=== PATIENT | female | born 1985 | race Asian ===

== ENCOUNTER → 2019-10-10 15:24 | Outpatient (CLI) | payer OTHER, SELFPAY | PROVIDERS: Family Provider Obstetrics & Gynecology; PCP Obstetrics & Gynecology; Visit Provider Obstetrics & Gynecology | DX: N89.8 Other specified noninflammatory disorders of vagina (principal) | CPT/HCPCS: 87255 ==

== ENCOUNTER → 2022-01-20 15:04 | Outpatient (CLI) | payer BC, SELFPAY ==
[2022-01-20 16:28] LABS: Appearance Urine UA CLEAR; Bilirubin Urine UA NEGATIVE (NEGATIVE); Color Urine UA YELLOW; Glucose Urine UA NEGATIVE (Negative); Ketones Urine UA NEGATIVE (NEGATIVE); Leukocyte Esterase Urine UA TRACE (NEGATIVE); Nitrite Urine UA NEGATIVE (Negative); Occult Blood Urine UA 1+ (Negative); Protein Urine UA NEGATIVE (Negative); Specific Gravity Urine UA <=1.005 (1.000-1.035); Urobilinogen Urine UA 0.2 E.U./dL (0.2)
[2022-01-20 16:53] LABS: Bacteria Urine None Seen; Culture Indicated Urine Cult Not Indicated; RBC Urine 0-1/HPF (0-5/HPF); Squamous Epithelial Cell Urine 10-30 /HPF (0-5/HPF); WBC Urine 0-1/HPF (0-5/HPF)
== END ==
PROVIDERS: Family Provider Obstetrics & Gynecology; PCP Obstetrics & Gynecology; Referring Provider Obstetrics & Gynecology; Visit Provider Obstetrics & Gynecology
DX: R35.0 Frequency of micturition (principal)
CPT/HCPCS: 81001

== ENCOUNTER → 2023-09-26 13:16 | Outpatient (CLI) | payer OTHER, BC, SELFPAY ==
--- NOTE | 2023-09-26 | DI.US.S_ITS ---
ULTRASOUND OF LEFT BREAST: 09/26/2023 CLINICAL: Palpable left breast lump. Comparison is made to exam dated: 09/26/2023 mammogram - [facility]. Color flow ultrasound of the left breast was performed. Juarez scale images of the real-time examination were reviewed. There is a 3.2 cm x 3.1 cm x 2.2 cm oval mass with a microlobulated margin in the left breast at 1 o'clock middle depth 2 cm from the nipple. This oval mass is isoechoic. This correlates as palpated and with mammography findings. Color flow imaging demonstrates that there is vascularity present. IMPRESSION: SUSPICIOUS OF MALIGNANCY The 3.2 cm x 3.1 cm x 2.2 cm oval mass in the left breast corresponds to the palpable abnormality, most likely is a fibroadenoma and is at a low suspicion for malignancy. An ultrasound guided biopsy is recommended. Findings and recommendations were discussed with the patient in person by Dr. Beto Richards at time of exam. This exam was interpreted at Station ID: [id number]. Electronically Signed By: Chastity hinojosa/:09/26/2023 15:17:46 letter sent: Biopsy Required Ultrasound BI-RADS: 4a Low suspicion for malignancy
--- NOTE | 2023-09-26 | DI.MG.S_ITS ---
BILATERAL DIGITAL DIAGNOSTIC MAMMOGRAM 3D/2D: 09/26/2023 CLINICAL: Baseline exam. Left breast Mass. Family history Breast Cancer. No prior exams were available for comparison. There are scattered areas of fibroglandular density in the right breast (category b / 25%-50% glandular tissue). The left breast is heterogeneously dense, which may obscure small masses (category c / 51-75% glandular tissue). There is a 3.5 cm oval high density mass with a circumscribed margin in the left breast at 12 o'clock middle depth. This is seen in additional views. This correlates as palpated. No other significant masses, calcifications, or other findings are seen in either breast. RIght mammogram is normal. IMPRESSION: INCOMPLETE: NEEDS ADDITIONAL IMAGING EVALUATION The 3.5 cm oval high density mass in the left breast is indeterminate. An ultrasound is recommended. This was performed immediately following this exam. Right breast mammogram is normal. Based on Tyrer-Cuzick model (a risk assessment model), the patient's lifetime risk is 20.7% and her 10 year risk is 2.2%. If a patient has an elevated risk, a more comprehensive evaluation should be considered and/or a referral to a genetic counselor. The [employer], [employer], and NCCN Guidelines advise the consideration of Breast MRI as an adjunct to screening mammography in patients whose Lifetime risk to develop breast cancer is 20% or higher. This exam was interpreted at Station ID: [id number]. NOTE: For mammograms, a report in lay terms will be sent to the patient. Approximately 15% of breast malignancies will not be visualized mammographically. In the management of a palpable breast mass, a negative mammogram must not discourage biopsy of a clinically suspicious lesion. Electronically Signed By: Chastity hinojosa/:09/26/2023 14:05:12 ACR BI-RADS Category 0: Incomplete [id number]
== END ==
PROVIDERS: Family Provider Obstetrics & Gynecology; PCP Obstetrics & Gynecology; Referring Provider Registered Nurse; Visit Provider Registered Nurse
DX: R92.8 Other abnormal and inconclusive findings on diagnostic imaging of breast (principal); N63.21 Unspecified lump in the left breast, upper outer quadrant; R92.332 Mammographic heterogeneous density, left breast
CPT/HCPCS: 76642; 77066; G0279

== ENCOUNTER → 2023-10-17 14:12 | Outpatient (CLI) | payer OTHER, BC, SELFPAY ==
--- NOTE | 2023-10-17 | PATH_ITS ---
[facility] Accession Number: [id number] No. of containers..01 Tissue . 01 Material submitted: . breast - LEFT BREAST 1:00 2 CMFN . 01 Diagnosis: A. LEFT BREAST, 1 O'CLOCK, 2 CM FROM THE NIPPLE, BIOPSY: Fibroepithelial lesion, with cellular stroma; see comment. . COMMENT: The biopsy consists of a fibroepithelial proliferation with mild increase in cellularity along with mild stromal cell atypia. No significant mitotic activity is seen. The differential diagnosis includes a benign fibroadenoma with increased cellularity, or benign phyllodes tumor. . In addition, mild epithelial proliferation is seen in the form of small karmen without significant cytologic atypia. Deeper levels and IHC have been performed (see microscopic description), with an aberrant immunohistochemical pattern. Overall, the findings most likely represent columnar cell hyperplasia/columnar cell change, and less likely a neoplastic epithelial proliferation (such as atypical ductal hyperplasia). . Overall, correlation with clinical and radiographic findings is necessary. An excision is recommended for definitive classification. [facility] 10/24/2023 1352 Local . 01 Electronically signed: . Chata Cortes MD, Pathologist NPI- [id number] . 01 Gross description: . Received is one formalin-filled container labeled with the patient's name labeled L. 1 o'clock 2 cm. The specimen is received with a plastic filter in container and sample loose in container, and consists of multiple yellow-sanchez to sanchez-white pieces of tissue which range in size from less than 0.1 cm to 1.1 x 0.3 x 0.3 cm. All fragments are totally submitted in cassette A1. . Possible collection date and time per requisition 10/17/2023 at 1515 hours. Total fixation time approximately 11 hours. ([id number]) / 10/18/2023 0656 Local . 01 Microscopic: . CK5/6 and ER immunostains are performed on A1 in order to evaluate the epithelial proliferation, with appropriately staining controls. The epithelial proliferation consists of some tufting, however, no clear expansion, definite true fibrovascular cores, bridging, or overt atypia is seen. There is adjacent prominent epithelial sloughing, which limits overall assessment. There is loss of CK 5/6, and full expression of ER. Deeper H/E levels are examined. . * This test was developed and its performance characteristics determined by [facility]. It has not been cleared or approved by the U.S. Food and Drug Administration. The FDA has determined that such clearance or approval is not necessary. This test is used for clinical purposes. It should not be regarded as investigational or for research. . 01 Pathologist provided ICD-10: N63.20 . 01 CPT . 344655, D41537, H51352 Specimen Comment: A courtesy copy of this report has been sent to [facility] Performed at: 01 [facility] [address] [place] [address], [place], [place] [id number] MD Kostas Kaur MD Phone: [phone]
--- NOTE | 2023-10-17 14:13 | DI.US.S_ITS ---
ULTRASOUND GUIDED BIOPSY LEFT BREAST WITH MARKING DEVICE INSERTED AND POST DIGITAL MAMMOGRAPHIC IMAGIN10/18/2023 CLINICAL: Left breast mass. PATIENT CONSENT: Risks (minor bleeding, infection, vasovagal reaction and repeat procedure), benefits and alternatives were explained to the patient and written informed consent was obtained. Correlation is made to exams dated: 09/26/2023 ultrasound and 09/26/2023 mammogram - [facility]. An ultrasound guided biopsy using real-time ultrasound was performed for the 4.1 cm x 3.6 cm x 2.8 cm oval mass located in the left breast at 1 o'clock middle depth 2 cm from the nipple. This was described on the previous mammography and ultrasound reports. The skin was prepped in the usual manner. Local anesthetic was administered to the access site. A skin cydney was made in the breast. The abnormality was approached from the lateral aspect. A 14 gauge biopsy needle was placed adjacent to the abnormality under ultrasound guidance. Once the needle was documented to be in the correct location, six specimens were obtained using BARD Elevation biopsy device. A clip was inserted into the biopsy cavity. A sterile dressing was applied to the access site. Post procedure digital mammographic imaging demonstrates the location device at the targeted area. The specimens were sent to the laboratory for pathological analysis. IMPRESSION: ULTRASOUND GUIDED BIOPSY BENIGN Ultrasound guided biopsy of the 4.1 cm x 3.6 cm x 2.8 cm mass in the left breast at 1 o'clock middle depth 2 cm from the nipple was successful. Pathology indicates benign fibroepithelial neoplasms. Pathology results are concordant with imaging findings. Recommend surgical consultation to consider excision given cellular stroma and larger size. This exam was interpreted at Station ID: [id number]. Darin pantoja,slc/:10/25/2023 13:29:56
--- NOTE | 2023-10-17 14:13 | DI.MG.S_ITS ---
UNILATERAL LEFT DIGITAL DIAGNOSTIC MAMMOGRAM 3D/2D: 10/17/2023 CLINICAL: Post left breast ultrasound biopsy clip placement imaging. Comparison is made to exam dated: 09/26/2023 mammogram - [facility]. The left breast is heterogeneously dense, which may obscure small masses (category c / 51-75% glandular tissue). There is a marker clip in the appropriate position in the left breast at 1 o'clock middle depth 2 cm from the nipple. This marker clip placement is at the biopsy site. This correlates with ultrasound findings and the biopsy. IMPRESSION: POST PROCEDURE MAMMOGRAM FOR MARKER PLACEMENT There was a successful marker clip placement in the left breast middle depth. Based on Tyrer-Cuzick model (a risk assessment model), the patient's lifetime risk is 20.7% and her 10 year risk is 2.2%. If a patient has an elevated risk, a more comprehensive evaluation should be considered and/or a referral to a genetic counselor. The [employer] [employer], [employer], and NCCN Guidelines advise the consideration of Breast MRI as an adjunct to screening mammography in patients whose Lifetime risk to develop breast cancer is 20% or higher. This exam was interpreted at Station ID: [id number]. NOTE: For mammograms, a report in lay terms will be sent to the patient. Approximately 15% of breast malignancies will not be visualized mammographically. In the management of a palpable breast mass, a negative mammogram must not discourage biopsy of a clinically suspicious lesion. Electronically Signed By: Darin pantoja/fiona:10/17/2023 21:07:57 ACR BI-RADS Category Post-procedure mammogram for marker placement
== END ==
LOC: US 14:12
PROVIDERS: Family Provider Obstetrics & Gynecology; PCP Registered Nurse; Referring Provider Registered Nurse; Visit Provider Registered Nurse
DX: R92.8 Other abnormal and inconclusive findings on diagnostic imaging of breast (principal); D24.2 Benign neoplasm of left breast; R92.332 Mammographic heterogeneous density, left breast
CPT/HCPCS: 19083; 77065

== ENCOUNTER 2023-11-29 08:19 | Day surgery (SDC) | payer OTHER, BC, SELFPAY ==
[2023-11-24 08:26] VITALS: BMI 23.0
[2023-11-29] VITALS (7 sets, daily range): BP systolic 122–153; BP diastolic 84–117; PULSE 61–89; RESP 14–21; TEMP 36.1–37.1; O2SAT 99–100; BMI 22.6
--- NOTE | 2023-11-29 | PATH_ITS ---
[facility] Accession Number: [id number] No. of containers..01 Tissue . 01 Material submitted: . breast - LEFT BREAST MASS . 01 Diagnosis: A. 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 No evidence of atypia, carcinoma in situ, or malignancy. . COMMENT: The prior biopsy is reviewed in conjunction with the excision. The areas of priorly reported atypical findings are also observed within the excised fibroadenoma, and are favored to represent columnar cell change/columnar cell hyperplasia. There is no evidence of atypical hyperplasia, carcinoma in situ, or malignancy. Biopsy clip and site changes are seen. [facility] 12/06/2023 1232 Local . 01 Electronically signed: . Chata Cortes MD, Pathologist NPI- [id number] . 01 Gross description: . Received in formalin with two patient identifiers and left breast mass, is a mostly encapsulated unoriented barrientos rubbery soft tissue fragment weighing 23 grams and measuring 3.9 x 3.8 x 3.6 cm. The roughened area consists of cautery artifact and is inked while the remaining external surface is inked green. The specimen is serially sectioned into eight slices to reveal a diffusely barrientos soft cut surface with a Vision shaped biopsy clip found within slice 5. The clip is located 0.7 cm from the nearest inked tissue edge. No distinct lesions or yellow adipose are grossly identified. Parachute Repairer sections are submitted as follows: . A1: Slice 1 perpendicular. A2-A3: Composite slice 3. A4-A6: Composite slice 5 with biopsy site in A4. A7-A8: Composite slice 7. A9: Rep slice 8 perpendicular. . The specimen was removed on 11/29/2023, time not provided; cold ischemic time cannot be calculated; and total fixation time is approximately 56 hours following additional fixation. ([id number]) /MRV 11/30/2023 1744 Local . 01 Microscopic: . ER and CK5/6 immunostains are performed on A2, in order to evaluate the intraductal proliferation (similar to those seen in the biopsy). Appropriate positive controls are seen. Similar immunohistochemical findings are seen throughout the lesion (with diffuse ER immunoreactivity and diminished CK5/6). These changes along with the morphology are in support of columnar cell hyperplasia/change. . This test was developed and its performance characteristics determined by [employer]. It has not been cleared or approved by the U.S. Food and Drug Administration. The FDA has determined that such clearance or approval is not necessary. This test is used for clinical purposes. It should not be regarded as investigational or for research. . 01 Pathologist provided ICD-10: D24.2 . 01 CPT . 000869, S46123, B94644 Specimen Comment: A courtesy copy of this report has been sent to [phone] Performed at: 01 [facility] [id number] MD Kostas Kaur MD Phone: [phone]
[2023-11-29] MEDS: LACTATED RINGERS 1,000 ML 42 ML IV (08:43)
--- NOTE | 2023-11-29 09:05 | P.HP_ITS ---
History of Present Illness History of Present Illness Date Patient Seen: 11/29/23 Time Patient Seen: 09:05 Chief complaint: Left Breast Biopsy/Lumpectomy Narrative: Rosa is a 38 year old woman with a 3.5 cm left breast mass which was biopsied and felt to be a benign lesion, most likely either a fibroadenoma or a phylloides tumor. See office note from October for details. [facility] Medical History (Updated 10/26/23 @ 09:45 by Sanjiv Marquez MD) Anemia Surgical History (Updated 11/24/23 @ 08:46 by Ruthie Lu, RENETTA) Hx of left breast biopsy (2023) Social History household members: spouse Smoking Status: Never smoker alcohol intake: never Meds Home Medications and Allergies Home Medications Medication Instructions Recorded Confirmed Type copper 380 square mm intrauterine intrauterine 10/09/18 10/10/19 History device (ParaGard T 380A) ferrous sulfate 325 mg (65 mg 325 mg PO DAILY 10/26/23 11/29/23 History iron) tablet acetaminophen 500 mg tablet 500 mg PO PRN PRN Pain (Scale 11/29/23 11/29/23 History (Tylenol Extra Strength) Score 4-6) Allergies Allergy/AdvReac Type Severity Reaction Status Date / Time No Known Drug Allergies Allergy Verified 11/29/23 08:44 Exam Vital Signs (past 8 hours): - 11/29/23 08:47 Temperature 98.8 F Pulse Rate 73 Respiratory Rate 16 Blood Pressure 147/95 H Pulse Oximetry 100 Oxygen Delivery Method Room Air Oxygen Delivery Method Room Air Narrative Exam Narrative: There is a 3.5 cm mobile mass in the left breast. Assessment & Plan Assessment and plan (1) Left breast mass: Qualifiers: Breast mass location: upper outer quadrant Qualified Code(s): N63.21 - Unspecified lump in the left breast, upper outer quadrant Status: Acute Plan We discussed excisional biopsy of left breast mass. She would like to proceed.
[2023-11-29] MEDS: ACETAMINOPHEN 325 MG TABLET 975 MG PO (09:06)
[2023-11-29] MEDS: LIDOCAINE 1% W/EPI 20 ML INJ (10:00)
[2023-11-29] MEDS: BUPIVACAINE 0.5% (PF) 30 ML VIAL INJ (10:01)
--- NOTE | 2023-11-29 10:02 | SUR.OPER ---
Supine on padded OR bed, head on pillow, arms secured on padded arm boards at <90 degrees abduction, legs uncrossed, safety belt at thigh, tape over blanket over lower legs.
--- NOTE | 2023-11-29 10:31 | PM.OP.1 ---
Operative Date/Time/Diagnoses Date of procedure: 11/29/23 Time of procedure: 10:31 Pre-op diagnosis: Left breast mass Post-op diagnosis: same Procedure & Clinicians Procedure: Excisional biopsy of left breast mass Same procedure as scheduled: Yes Surgeon: Sanjiv Marquez Raw Scales Operator: Tripp Moreno Anesthesia Type: General Operative Notes Procedure in detail: The patient is a 38-year-old woman with a left breast mass. She did have an ultrasound and a biopsy which showed benign cells most likely to be fibroadenoma or phyllodes tumor. The patient was brought to the operating room and anesthesia was induced. The left breast was prepped and draped in the usual fashion and a time-out was performed. We made a 5 cm radial incision over the mass in the upper outer quadrant of the left breast. We dissected down through subcutaneous adipose tissue until we encountered the smooth distinct surface of the lobular mass. It was easily from the surrounding tissue by finger fracture. Cautery was used to dissect the mass from the underlying breast parenchyma. The mass was approximately 3.5 cm x 3 cm x 4 cm. A few bleeders were cauterized within the wound. Additional local was injected into the deep aspect of the wound and then the wound was closed in layers using multiple interrupted 3-0 Vicryl dermal sutures followed by a running 4-0 Monocryl subcuticular stitch. Steri-Strips and gauze were applied. EBL: 10 mL Specimen: Left breast mass Tripp HAN provided assistance with exposure, retraction and closure of incisions. Post-operative Condition: stable Disposition: PACU
== END 2023-11-29 11:24 | disposition home or self-care (01) ==
PROVIDERS: Family Provider Obstetrics & Gynecology; PCP Registered Nurse; Referring Provider Surgery; Visit Provider Surgery
PROC: (CPT 19301; principal; 2023-11-29 09:45)
DX: D24.2 Benign neoplasm of left breast (principal)
CPT/HCPCS: 19120; J1100; J1885; J2250; J2405; J2704; J3010

== ENCOUNTER → 2024-01-27 12:07 | Outpatient (CLI) | payer OTHER, BC, SELFPAY ==
[2024-01-27 13:11] LABS: Alanine Aminotransferase 20 IU/L (<35); Albumin 4.2 g/dL (3.5-5.0); Albumin Globulin Ratio 1.4 (1.0-2.8); Alkaline Phosphatase 67 U/L (38-126); Aspartate Aminotransferase 24 IU/L (14-36); BUN Creatinine Ratio 12.9 (6-22); Bilirubin Total 0.4 mg/dL (0.2-1.3); Blood Urea Nitrogen 8 mg/dL (7-17); Carbon Dioxide 26 mmol/L (22-32); Chloride 104 mmol/L (98-107); Estimated Glomerular Filt Rate > 60 mL/min (>60); Globulin 3.1 g/dL (1.7-4.1); Glucose 100 mg/dL (70-100); HEMOLYSIS < 15 (0-50); Potassium 3.8 mmol/L (3.4-5.1); Sodium 137 mmol/L (137-145); Total Protein 7.3 g/dL (6.3-8.2)
== END ==
PROVIDERS: Family Provider Obstetrics & Gynecology; PCP Registered Nurse; Referring Provider Registered Nurse; Visit Provider Registered Nurse
DX: D50.9 Iron deficiency anemia, unspecified (principal)
CPT/HCPCS: 36415; 80053